=== PATIENT | female | born 1945 | race Caucasian/White ===

== ENCOUNTER → 2019-07-11 | Outpatient (REF) | payer MEDICARE, OTHER ==
[~2019-07-11] MED LIST: AMLO2.5T75 PO; CHOL200018 PO; LEVO25TA57 PO
== END ==
LOC: ZZSENDIN 12:51
PROVIDERS: ATTEND Physician Assistant
DX: R30.0 Dysuria (principal); B96.89 Other specified bacterial agents as the cause of diseases classified elsewhere
CPT/HCPCS: 87077; 87088; 87186